=== PATIENT | male | born 1945 | race Caucasian/White ===

== ENCOUNTER 2017-12-30 08:26 | Emergency (ER) | payer OTHER ==
[~2017-12-30] VITALS: Ht 177.8 cm; Wt 93.0 kg
[~2017-12-30 08:26] MED LIST: ATIVAN0.5 M1 PO; BUFFERIN LOW DO81 MG PO; COLCHICINE0.6 MG PO; FLOMAX0.4 M1 PO; INDOCIN25 MG PO; KEFLEX500 M1 PO; NORCO 325 MG-51 TAB PO; PREDNISONE20 MG PO; TRANSDERM-SCOP1 EACH TOP; TRIBENZOR 40-11 EAC1 PO; TYLENOL WITH C1 EACH PO; ZOCOR10 M1 PO
[2017-12-30 09:19] LABS: ABSOLUTE BASOPHIL COUNT 0 /CUMM (0.0-0.2); ABSOLUTE EOSINOPHIL COUNT 0 /CUMM (0.0-0.7); ABSOLUTE GRANULOCYTE CT 3.8 /CUMM (1.4-6.5); ABSOLUTE LYMPH COUNT 0.4 /CUMM (1.2-3.4); ABSOLUTE MONOCYTE COUNT 0.3 /CUMM (0.10-0.60); BASOPHIL % 0.2 % (0.0-2.0); EOSINOPHIL % 0.2 % (0-5); GRANULOCYTE % 83.6 % (42.2-75.2); HEMATOCRIT 40.9 % (42-52); MEAN CORPUSCULAR HGB 31.8 PG (27.0-31.0); MEAN CORPUSCULAR HGB CONC 35.3 G/DL (33.0-37.0); MEAN CORPUSCULAR VOLUME 89.9 FL (80.0-94.0); PLATELET COUNT 195 /CUMM (130-400); RBC DISTRIBUTION WIDTH 14.5 % (11.5-14.5); RED BLOOD CELL CT 4.55 /CUMM (4.70-6.10); WHITE BLOOD CELL COUNT 4.6 /CUMM (4.8-10.8)
--- NOTE | 2017-12-30 09:45 | ED AMS/SEIZURE/WEAK/DIZZY ---
History of Present Illness General Chief Complaint: General Adult Stated Complaint: DIZZY,CHILLS,FEVER X3 DAYS Source: patient, old records Exam Limitations: no limitations Vital Signs & Intake/Output Vital Signs & Intake/Output Vital Signs Date Time Temp Pulse Resp B/P B/P Pulse O2 O2 Flow FiO2 Mean Ox Delivery Rate 12/30 1242 99.2 71 20 115/64 96 Room Air 12/30 1059 99.1 70 18 127/63 97 Room Air 12/30 0835 99.4 93 20 95/54 100 Room Air Allergies Coded Allergies: Sulfa (Sulfonamide Antibiotics) (UNKNOWN 12/30/17) Reconcile Medications Magnesium Oxide (Magnesium) 400 MG CAPSULE 1 CAP PO BID hypomagnesemia Olmesartan/Amlodipin/Hcthiazid (Tribenzor 40-10-25 MG Tablet) 40 MG-10 MG-25 MG TABLET 1 TAB PO DAILY HEART (Reported) Scopolamine 1 MG/3 DAY PATCH.TD.3 1 PATCH TOP Q72 PRN dizziness Simvastatin (Zocor*) 10 MG TABLET 1 TAB PO DAILY CHOLESTEROL (Reported) Tamsulosin HCl (Flomax) 0.4 MG CAP.ER.24H 1 CAP PO DAILY PROSTATE (Reported) Triage Note: PT TO ED C/O DIZZINESS, CHILLS SINCE SATURDAY. DENIES C/P, SOB, DIFF BREATHING. TEMP 99.4, BP 95/54. H/O VERTIGO, BUT NEVER THIS BAD. STATES CONSTANT DIZZINESS, WORSE WITH MOVING. PT TAKEN TO ROOM 5 FOR EVAL. Triage Nurses Notes Reviewed? yes Onset: 3 days Duration: day(s):, constant, continues in ED, getting worse Timing: recent history Injury Environment: home Severity: severe Modifying Factors: Improves With: immobilization, rest. Worsens With: movement. HPI: 3 days prior to admission patient complains of increasing dizziness and weakness chills. He denies fever nausea vomiting diarrhea chest pain cough shortness of breath headache dysuria rash bleeding change in hearing. Past History Travel History Traveled to [place] past 21 day No Medical History Any Pertinent Medical History? 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 No Review of Systems Review of Systems Constitutional: Reports: see HPI, chills, weakness. EENTM: Reports: no symptoms. Respiratory: Reports: no symptoms. Cardiovascular: Reports: no symptoms. GI: Reports: no symptoms. Genitourinary: Reports: no symptoms. Musculoskeletal: Reports: no symptoms. Skin: Reports: no symptoms. Neurological/Psychological: Reports: see HPI, weakness. Hematologic/Endocrine: Reports: no symptoms. Immunologic/Allergic: Reports: no symptoms. All Other Systems: Reviewed and Negative Physical Exam Physical Exam General Appearance: well developed/nourished, alert, awake, anxious, moderate distress Head: atraumatic, normal appearance Eyes: Bilateral: normal appearance, PERRL, EOMI, other (nystagmus). Ears, Nose, Throat: normal pharynx, normal ENT inspection Neck: normal inspection, supple, full range of motion, no midline tenderness Respiratory: normal breath sounds, chest non-tender, no respiratory distress, quiet respiration, lungs clear Cardiovascular: regular rate/rhythm, normal peripheral pulses, norml femoral pulses equa Peripheral Pulses: 4+ carotid (R), 4+ carotid (L) Gastrointestinal: normal bowel sounds, soft, non-tender, no organomegaly Back: normal inspection, normal range of motion, no vertebral tenderness Extremities: normal range of motion, no ligament instability Neurologic/Psych: no motor/sensory deficits, awake, alert, oriented x 3, normal gait, normal mood/affect, 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 Skin: intact, normal color, warm/dry Lymphatic: no anterior cervical kathy Core Measures ACS in differential dx? No CVA/TIA Diagnosis No Sepsis Present: No Sepsis Focused Exam Completed? No Progress Differential Diagnosis: benign positional vertigo, electrolyte imbalance, hypoglycemia, hypoxia, pneumonia, presyncope Plan of Care: Orders Procedure Date/time Status TROPONIN LEVEL 12/30 08 Complete MAGNESIUM 12/30 08 Complete COMPREHENSIVE METABOLIC PANEL 12/30 08 Complete CBC WITHOUT DIFFERENTIAL 12/31 855 Complete EKG 12/30 0856 Active Current Medications Sig/Anna Start time Last Medication Dose Stop Time Status Admin Magnesium Sulfate 1 GM Q2H 12/30 1000 AC 12/30 (Mag Sulfate in D5) 12/30 1359 1208 Dextrose/Water 100 ML (D5W) Laboratory Tests 12/30/17 0905: Anion Gap 15, Estimated GFR 40 L, BUN/Creatinine Ratio 18.2, Glucose 114 H, Calcium 8.9, Magnesium 1.2 L, Total Bilirubin 0.9, AST 47, ALT 34, Alkaline Phosphatase 53, Troponin I 0.05, Total Protein 7.4, Albumin 4.1, Globulin 3.3, Albumin/Globulin Ratio 1.2, CBC w Diff MAN DIFF ORDERED, RBC 4.55 L, MCV 89.9, MCH 31.8 H, MCHC 35.3, RDW 14.5, MPV 7.0 L, Gran % 83.6 H, Lymphocytes % 8.8 L, Monocytes % 7.2, Eosinophils % 0.2, Basophils % 0.2, Absolute Granulocytes 3.8, Segmented Neutrophils 67, Band Neutrophils 12 H, Absolute Lymphocytes 0.4 L, Lymphocytes 16 L, Monocytes 5, Absolute Monocytes 0.3, Absolute Eosinophils 0, Absolute Basophils 0, Platelet Estimate ADEQUATE, Normocytic RBCs VERIFIED, Normochromic RBCs VERIFIED Diagnostic Imaging: Viewed by Me: Radiology Read, CT Scan. Discussed w/RAD: Radiology Read, CT Scan. Radiology Impression: - No evidence of pneumonia. - No acute cardiopulmonary findings compared to 09/02/2017. Initial ED EKG: normal axis, normal intervals, normal p-waves, normal QRS complex, normal sinus rhythm, no ST T wave changes Rhythm Strip: normal sinus rhythm Departure Departure Time of Disposition: 1157 Disposition: HOME OR SELF CARE Condition: Stable Clinical Impression Primary Impression: Acute prerenal azotemia Secondary Impressions: Hypomagnesemia, Vertigo Referrals: Ramiro NINA,Brown Ruth (PCP/Family) Departure Forms: Customer Survey General Discharge Information Prescriptions: Current Visit Scripts Scopolamine 1 PATCH TOP Q72 PRN dizziness #4 PATCH Magnesium Oxide (Magnesium) 1 CAP PO BID #60 CAP
--- NOTE | 2017-12-30 10:18 | RADIOLOGY REPORT ---
EXAMINATION: XR PORTABLE CHEST CLINICAL INFORMATION: Dizziness, chills and weakness. COMPARISON: 09/02/2017 TECHNIQUE: Portable frontal view of the chest was obtained. FINDINGS: Lungs are well expanded and clear. No pulmonary consolidation, pneumothorax or pleural effusion. Cardiac silhouette is at the upper range of normal size. Atherosclerotic calcification of the aortic arch. The hilar contours are normal. The visualized bones are intact. IMPRESSION: - No evidence of pneumonia. - No acute cardiopulmonary findings compared to 09/02/2017.
--- NOTE | 2017-12-30 10:38 | CT SCAN REPORT ---
EXAMINATION: CT HEAD WITHOUT CONTRAST CLINICAL INFORMATION: History of Waldenstrom's macroglobulinemia. Prostate cancer with vertigo. Presumptive diagnosis: Tumor, metastases. COMPARISON: CT the brain done 03/15/2017. (Lacunar infarcts right caudate nucleus and right frontal periventricular white matter). TECHNIQUE: Contiguous axial imaging was performed from the skull base to vertex without intravenous administration of contrast. DLP: 616 mGy-cm FINDINGS: There is no evidence of acute intracranial hemorrhage or territorial infarction. No abnormal mass effect or midline shift is seen. Lorenzo to white matter differentiation is well preserved. No extra-axial fluid collections are identified. The ventricles are normal in size. Again, there are small lacunar infarcts involving the head of the right caudate nucleus and periventricular white matter of the right frontal lobe. The osseous structures and soft tissues are normal. The mastoid air cells and visualized portions of the paranasal sinuses are well aerated. IMPRESSION: No acute intracranial pathology.
[2017-12-30] MEDS ORDERED: SCOPOLAMINE1 EAC1 TOP (11:57)
[2017-12-30] MEDS ORDERED: MAGNESIUM400 M1 PO (11:58)
[2017-12-30 12:42] VITALS: BP 115/64
== END 2017-12-30 14:05 ==
LOC: ERH 08:26
PROVIDERS: Emergency Medicine
DX: R79.89 Other specified abnormal findings of blood chemistry (principal); E83.42 Hypomagnesemia; R42 Dizziness and giddiness
CPT/HCPCS: 71045; 93005; 93010; 96361; 96374